=== PATIENT | female | born 1985 | race Caucasian/White ===

== ENCOUNTER 2020-11-01 16:52 | Emergency (ER) | payer OTHER ==
[2020-11-01 19:15] LABS: BASOPHIL 0.1 % (0-2); EOSINOPHIL 2.8 % (0-5); HCT 38.7 % (37.0-47.0); HGB 12.9 g/dl (12.5-16.0); LYMPHOCYTE 44.8 % (15-48); MCH 31.2 pg (25.0-31.0); MCHC 33.3 g/dL (32.0-36.0); MCV 93.7 fL (78.0-100.0); MONOCYTE 8.1 % (0-12); MPV 8.8 fL (6.0-9.5); NEUTROPHIL 44.1 % (41-80); NRBC 0; PLT 294 K/uL (150-400); RBC 4.13 M/uL (4.20-5.40); RDW 13.3 % (11.5-14.0); WBC 8.3 K/uL (4.0-10.5)
[2020-11-01 19:35] LABS: CREATININE 0.7 mg/dL (0.51-0.95); POTASSIUM 3.7 mmol/L (3.5-5.1)
== END 2020-11-01 20:54 | disposition home or self-care (01) ==
LOC: FER 16:52
PROVIDERS: Nurse Practitioner Family
DX: R07.89 Other chest pain (principal)
CPT/HCPCS: 36415; 71045; 80048; 84484; 85025; 93005